=== PATIENT | male | born 1940 | race Caucasian/White ===

== ENCOUNTER 2023-08-15 08:17 | Outpatient (AMB) | payer OTHER, SELFPAY ==
--- NOTE | 2023-08-15 08:39 | MHC.OFFVIS ---
Intake Vital Signs 08/15/23 08:54 Height 5 ft 8 in Weight 231 lb BMI 35.1 BP 127/60 Blood Pressure Location Rt brachial Position Sitting Pulse 66 Intake Visit Reasons: Neoplasm of uncertainty, right neck Intake Note: [facility]. Has been present for 2 yrs. Denies bleeding, itch, pain. Becomes bothersome when rubbing with clothing. Hx of precancerous lesions on forehead that were treated with LN2. 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 Accompanied by: Self / Same As Patient Medication List - Last Reconciled 08/15/23 by Martinez Paez MD amlodipine 5 mg PO BID aspirin 325 mg PO DAILY atorvastatin 80 mg PO DAILY cyanocobalamin (vitamin B-12) 1,000 mcg PO DAILY glipizide 5 mg PO BID insulin glargine 20 units subcut QAM insulin syringe-needle U-100 (BD Insulin Syringe Ultra-Fine) As directed lisinopril 10 mg PO DAILY metformin 1,000 mg PO BID nitroglycerin 0.2 mg/hr 1 patch transdermal DAILY ranolazine ER 500 mg PO BID sotalol 240 mg PO BID tamsulosin 0.4 mg PO DAILY HPI HPI Comments History of Present Illness Details Patient presents for evaluation of posterior neck mass/growth. He has had this many years time. His increasing size, become more symptomatic. He wished to have removed. Chart was reviewed patient evaluated. [facility] Medical History (Updated 08/15/23 @ 08:58 by BOYD Patterson) Hx of renal calculi Actinic keratosis Type 2 diabetes mellitus without complication Low back pain Unspecified hearing loss Essential (primary) hypertension Chronic ischemic heart disease, unspecified Cataract Cardiac arrhythmia, unspecified Benign prostatic hyperplasia without lower urinary tract symptoms Surgical History (Updated 08/15/23 @ 09:31 by Martinez Paez MD) History of colonoscopy Social History (Updated 08/15/23 @ 08:58 by BOYD Patterson) Alcohol intake: never Patient Tobacco Use Status: Never used Tobacco Physical Exam Vital Signs: Last Vital Signs Pulse 66 08/15/23 08:54 BP 127/60 08/15/23 08:54 BMI result Body Mass Index 35.1 Neck Other: Approximately 2 x 1 cm mid posterior neck growth/mass. No cervical or periclavicular adenopathy. Office Procedures Excision Details: Risks, benefits, alternatives of excision of posterior neck mass reviewed with the patient included but not limited to bleeding, infection, recurrence, numbness, pain, scarring the patient wished to proceed. After appropriate positioning, patient underwent 1% lidocaine and Betadine prep and uneventful tangential excision of a posterior neck mass measuring approximately 2 x 1 cm. Room was excised as well. Wound base was cauterized with silver nitrate. Specimen sent to pathology. Bacitracin and sterile dressing were applied after wound was irrigated and secured hemostasis. Patient tolerated procedure well. 06661-Oounkrkv scalp/neck/hands/feet/genitalia 1.1cm-2cm Procedure code (CPT) selection complete Office Meds lidocaine 1 %-epinephrine 1:100,000 injection solution Performing Provider: Martinez Paez MD Performing Location: [facility] [place] [facility] [place] [facility] Administered by: Martinez Paez MD on 08/15/23 09:30 Dose Route Admin Location Dispensed Lot Number Expiration Date [facility] [place] [employer] 10 mL Infiltration 10 mL Assessment & Plan Assessment & Plan (1) Mass in neck: Code(s): R22.1 - Localized swelling, mass and lump, neck Plan: Patient has been given local instructions including bacitracin to the wound each day with Band-Aid, Tylenol p.r.n., may shower in 2 days, and will follow-up as directed or p.r.n.. Orders: Orders AMB Excision Today R22.1 - Localized swelling, mass and lump, neck Surgical Today R22.1 - Localized swelling, mass and lump, neck Coding Level of Care Code New Pt Level 4 (31770) Diagnoses Mass in neck R22.1 CPT Codes Scalp/Neck/Hands/Feet/Genetalia - CPT: 36900-Yuuiirld scalp/neck/hands/feet/genitalia 1.1cm-2cm ([id number])
[2023-08-15 08:54] VITALS: BP 127/60; PULSE 66; BMI 35.1
== END 2023-08-15 09:22 | disposition home or self-care (01) ==
PROVIDERS: PCP Internal Medicine; Referring Provider Internal Medicine; Visit Provider Surgery
DX: R22.2 Localized swelling, mass and lump, trunk (principal); D36.11 Benign neoplasm of peripheral nerves and autonomic nervous system of face, head, and neck
CPT/HCPCS: 11422; 99204

== ENCOUNTER 2023-08-15 08:17 | Outpatient (REF) | payer OTHER, SELFPAY | END 2023-08-15 08:18 | disposition home or self-care (01) | LOC: HO.LNP 08:17 | PROVIDERS: PCP Internal Medicine; Referring Provider Internal Medicine; Visit Provider Surgery | DX: D36.11 Benign neoplasm of peripheral nerves and autonomic nervous system of face, head, and neck (principal) | CPT/HCPCS: 11422; 88305 ==

== ENCOUNTER 2023-08-29 09:53 | Outpatient (AMB) | payer OTHER, SELFPAY ==
[2023-08-29 10:11] VITALS: BP 140/63; PULSE 79; BMI 35.6
--- NOTE | 2023-08-29 10:11 | MHC.OFFVIS ---
Intake Vital Signs 08/29/23 10:11 Height 5 ft 8 in Weight 234 lb BMI 35.6 BP 140/63 H Blood Pressure Location Rt brachial Position Sitting Pulse 79 Intake Visit Reasons: s/p excision of posterior neck lesion Intake Note: Patient here s/p exc on post neck. Reports sites healing well. Denies pain, oozing, itch. 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 He has no wound issues or complaints. Pathology benign. COUNTS INCLUDE 234 BEDS AT THE [facility] Medical History Hx of renal calculi Actinic keratosis Type 2 diabetes mellitus without complication Low back pain Unspecified hearing loss Essential (primary) hypertension Chronic ischemic heart disease, unspecified Cataract Cardiac arrhythmia, unspecified Benign prostatic hyperplasia without lower urinary tract symptoms Surgical History H/O excision of mass (08/15/23) History of colonoscopy Social History Alcohol intake: never Patient Tobacco Use Status: Never used Tobacco Physical Exam Vital Signs: Last Vital Signs Pulse 79 08/29/23 10:11 BP 140/63 H 08/29/23 10:11 BMI result Body Mass Index 35.6 Neck Other: Posterior neck wound clean dry and intact. Healing uneventfully with eschar. Assessment & Plan Assessment & Plan (1) Neurofibroma of external ear: Code(s): D36.11 - Benign neoplasm of peripheral nerves and autonomic nervous system of face, head, and neck Plan Patient has been given local instructions, and will follow-up p.r.n. Coding Level of Care Code Global (25636) Diagnoses Neurofibroma of external ear D36.11
== END 2023-08-29 10:15 | disposition home or self-care (01) ==
PROVIDERS: PCP Internal Medicine; Visit Provider Surgery
DX: D36.11 Benign neoplasm of peripheral nerves and autonomic nervous system of face, head, and neck (principal)
CPT/HCPCS: 99024

== ENCOUNTER → 2023-08-29 09:53 | Outpatient (BNVA) | payer OTHER, SELFPAY | PROVIDERS: PCP Internal Medicine; Visit Provider Surgery ==